=== PATIENT | male | born 1990 | race Caucasian/White ===

== ENCOUNTER 2016-12-31 12:27 | Observation (INO) | payer OTHER ==
[~2016-12-31] VITALS: Ht 175.3 cm; Wt 97.1 kg
--- NOTE | ~2016-12-31 | DS ---
Discharge Summary [address] [place]. [address] NAME: PHOEBE SALMERON : 86 STATUS : DIS Ubaldo PAT#: [id number] AGE: 26 ADM/REG DATE : 12/31/16 MR#: [id number] REPORT SERV DATE: 01/03/17 DICTATED BY: MONAE TRAN DATE: 01/02/17 REPORT STATUS : Draft TRANSCRIBED BY: NIXON DATE: 01/02/17 ADMISSION DATE: 12/31/2016 DISCHARGE DATE: 01/02/2017 CONSULTATION: 1. Neurology, Dr. Michael Tamayo. 2. Psychiatry. DISCHARGE DIAGNOSES: 1. Refractory seizures. 2. Psychogenic seizures. IMAGIN. MRI of the brain, impression; normal pre and post contrast MRI of the brain. 2. MRA head and neck, normal intracranial MRA. 3. MRA neck, normal brachiocephalic MRA with gadolinium of the carotid, vertebral, and subclavian arteries. 4. Echocardiogram, normal echocardiogram with left ventricular ejection fraction 55%. HISTORY OF PRESENT ILLNESS: This is a 26-year-old male, who presented to the emergency room department with complaints of tonic-clonic seizure-like activities with episodes of postictal confusion. Vital signs on presentation, blood pressure 138/70, temperature 98, heart rate 97, respiratory rate 16, oxygen saturation 98. Laboratory data: Serum Tegretol 13.5 (i). Creatinine 0.9, BUN 19. Chest x-ray shows no acute cardiopulmonary process. CT of the brain without contrast showed no acute intracranial pathology. An assessment of grand mal seizures was made in the ER. The patient was admitted to the Hospitalist Service. HOSPITAL COURSE: Refractory seizures. Neurology was consulted. Recommended to have an MRI of the brain and an EEG. MRI of the brain shows no acute cerebral process, however, EEG shows persistent seizure-like activities. Tegretol was discontinued during this admission. The patient received p.r.n. Ativan for seizure episodes and was started on Vimpat and Keppra during this admission. During the course of this admission, the patient had one additional seizure episode. There was a questionable psychogenic seizure. The patient was also noted by the Neurology team that the patient was noted to have severe anxiety during that process. The patient's Vimpat and Keppra were continued. Neurology recommended Psychiatry evaluation. The patient was evaluated by psychiatrist prior to discharge. The patient was ambivalent for Psychiatry followup as an outpatient. Psychiatry recommended the patient to continue antiseizure medications and follow up with Neurology as an outpatient. DISCHARGE MEDICATION: Discharge Summary [address] [address] NAME: PHOEBE SALMERON : 86 STATUS : DIS Ubaldo PAT#: [id number] AGE: 26 ADM/REG DATE : 12/31/16 MR#: [id number] REPORT SERV DATE: 01/03/17 DICTATED BY: MONAE TRAN DATE: 01/02/17 REPORT STATUS : Draft TRANSCRIBED BY: NIXON DATE: 01/02/17 1. Vimpat 200 mg p.o. q.12 hours. 2. Keppra 1000 mg p.o. q.12 hours. 3. Vitamin D 200 units p.o. b.i.d. 4. Aspirin 81 mg p.o. daily. DISCHARGE FOLLOWUP: 1. Follow up with primary neurologist within one week of discharge. 2. Follow up with primary care physician within one to two weeks of discharge. GILBERTO/NIXON Monae Tran MD / [id number] CC: MD Richard Nunn M.D.
--- NOTE | ~2016-12-31 | HP ---
History And Physical [address] [facility] [place]. [address] NAME: PHOEBE SALMERON : 86 STATUS : ADM Ubaldo PAT#: [id number] AGE: 26 ADM/REG DATE : 12/31/16 MR#: [id number] REPORT SERV DATE: 12/31/16 DICTATED BY: SAUMYA CALDERÓN DATE: 12/31/16 REPORT STATUS : Draft TRANSCRIBED BY: MODEduardo DATE: 12/31/16 DATE OF ADMISSION: 12/31/2016 HISTORY OF PRESENT ILLNESS: The patient is a 26-year-old male, who presented to [facility] with complaints of seizures. The patient said that last night around 10 o'clock, he was in a car as a passenger and his was driving and he had the short episode of absence when he was like passed out. He was talking to the then he stopped. The episode lasted very short and maybe a couple of seconds, then he regained his consciousness, and he was confused, initially disoriented, but he did not have any urination. The patient was also a little bit confused, but now he is improved. His father is also at the bedside, and he reported that the patient had a witnessed seizure episode as a tonic-clonic jerking in 2014 and then he had a three-minute post-event confusion, and this was documented on Neurology consultation which was done while the patient was admitted in June 2014. The patient's father reported that at this time the patient did not have convulsions, just episode of absence which basically lasted for seconds and then he said that also the patient is having now stuttering after this episode. Also, they reported that there was another episode recently when he had the seizure, but he was alone in [place] and nobody witnessed it. The patient does not have any other medical problems according to the patient's father. PAST SURGICAL HISTORY: Includes wisdom tooth removal and benign tumor from the foot. The patient does not smoke. He sometimes dips tobacco. No alcohol. No recreational drug use. 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 ALLERGIES: WRITTEN THAT THE PATIENT IS ALLERGIC TO NYQUIL, PSEUDOEPHEDRINE, DEXTROMETHORPHAN, AND DOXYLAMINE AND IT IS ALSO WRITTEN THAT HE IS ALLERGIC TO ACETAMINOPHEN, BUT THE PATIENT REPORTED THAT HE IS NOT ALLERGIC TO TYLENOL AND HE CAN TAKE TYLENOL. HOME MEDICATIONS: Include Tegretol 200 mg twice a day, vitamin D 200 mg twice a day, and multivitamins daily. FAMILY HISTORY: Father is healthy and mother has anemia problems. REVIEW OF SYSTEMS: All 14-point review of systems was done. The patient does not have any chest pain. No shortness of breath. No abdominal pain. No fever. No nausea. All 14-point review of systems done and he is negative except what is stated in the history of present illness. Also in 2015, the patient had a MRI of the brain, and at that time, it was essentially normal study. There was only slightly asymmetric appearance of the temporal horns adjacent to hippocampal region suggesting that it could be very early right hippocampal atrophy which could be seen with early presentation of mesial temporal sclerosis. History And Physical [address] [place]. [address] NAME: PHOEBE SALMERON : 86 STATUS : ADM Ubaldo PAT#: [id number] AGE: 26 ADM/REG DATE : 12/31/16 MR#: [id number] REPORT SERV DATE: 12/31/16 DICTATED BY: SAUMYA CALDERÓN DATE: 12/31/16 REPORT STATUS : Draft TRANSCRIBED BY: NIXON DATE: 12/31/16 PHYSICAL EXAMINATION: GENERAL: Well-nourished, well-developed male, not in acute distress. Resting quietly. VITAL SIGNS: Blood pressure 138/70, temperature 98, heart rate 97, respirations 16, and oxygen saturation 98 on room air. HEENT: Head atraumatic, normocephalic. Conjunctivae clear. Pupils are equal and reactive to light and accommodation. Extraocular muscles are intact. NECK: Supple. Trachea is midline. No supraclavicular or cervical lymphadenopathy LUNGS: Clear to auscultation bilaterally. Normal respiratory effort. CARDIOVASCULAR SYSTEM: Regular rate and rhythm. Point of maximal impulse not displaced. ABDOMEN: Soft, nontender, nondistended. Positive normoactive bowel sounds. EXTREMITIES: No clubbing, cyanosis. No edema. SKIN: Normal color and turgor. NEUROLOGICAL EXAMINATION: Muscle strength are 5/5 bilaterally in the upper and lower extremities. Deep tendon reflexes 2/4 bilaterally in upper and lower extremities. Cranial nerves III to XII are grossly intact. The patient is awake, alert, and oriented in time, place, and person. LABORATORY RESULTS: Serum Tegretol level was 13.5. He has sodium 143, potassium 3.7, chloride 109, carbon dioxide 29, BUN 9, creatinine 0.99, blood sugar is 86, magnesium is 2. Troponin less than 0.02. Calcium level is 8.9. White count 6.4, hemoglobin 15.4, hematocrit 43.8, platelet count 325. PT 13.2, INR is 1. The urinalysis did not show any evidence of urinary infection. Chest x-ray, PA and lateral, no acute cardiopulmonary abnormality. CT of the brain without contrast, normal CT of the brain. The CT scan of the brain was unremarkable. EKG show normal sinus rhythm with a rate of 84. Septal infarction of undetermined age. ASSESSMENT AND PLAN: This is a very pleasant 26-year-old male with a past medical history of grand mal seizure in 2014, now presented with absence type seizures (brief episode of absence) which basically happened with him last night. Also, there was another unwitnessed episode recently and also some stuttering after this episode. Question if this is an absence seizure. I discussed about these with the neurologist, Dr. Garcia, and he recently became his neurologist, since before he used to see Dr. Joya. He recommended to continue the patient's Tegretol although level is mildly elevated 13.5, he recommended to continue Tegretol, and I will recheck the Tegretol level in the morning as well as we will put the patient on Ativan p.r.n. for possible grand mal seizures. In the same time, the patient will be held for observation, and we will order MRI on the brain on this patient and consult neurologist to see him tomorrow. Also, since it was absence episode, we will also order echocardiogram on this patient, although the patient did not have any complaints and order TSH on this patient and free T4. History And Physical [address] [place]. [address] NAME: PHOEBE SALMERON : 86 STATUS : ADM Ubaldo PAT#: [id number] AGE: 26 ADM/REG DATE : 12/31/16 MR#: [id number] REPORT SERV DATE: 12/31/16 DICTATED BY: SAUMYA CALDERÓN DATE: 12/31/16 REPORT STATUS : Draft TRANSCRIBED BY: MODEduardo DATE: 12/31/16 Neurologist will see this patient starting tomorrow morning. The patient will be placed on cardiac telemetry bed and also start the patient on a baby aspirin. MG/MODL Saumya Calderón M.D. / [id number] CC: Teresa Salvador M.D., PhD.
--- NOTE | ~2016-12-31 | CN ---
Consultation Report [facility] [address] [place]. [address] NAME: PHOEBE SALMERON : 86 STATUS : ADM Ubaldo PAT#: [id number] AGE: 26 ADM/REG DATE : 12/31/16 MR#: [id number] REPORT SERV DATE: 01/01/17 DICTATED BY: MICHAEL TAMAYO DATE: 01/01/17 REPORT STATUS : Draft TRANSCRIBED BY: MODEduardo DATE: 01/01/17 NEUROLOGY CONSULTATION DATE OF CONSULTATION: 01/01/2017 REASON FOR CONSULTATION: Seizure. HOSPITALIST: Brandee Cerda M.D. NEUROLOGIST: Dr. Verona Joya, [place], [facility], she is over at [facility]. HISTORY OF PRESENT ILLNESS: The patient is a 26-year-old male, who has a history of tonic- clonic seizure activity. He had his first seizure in 2014 and was placed on carbamazepine by Dr. Verona Joya. Since that time, the patient has had partial complex seizure activity, and his last followup visit with Dr. Joya was approximately a year ago. Apparently, according to the patient's , he has not been completely compliant in taking his medication and has continued to have a few partial complex seizures. The patient reported he may have had a seizure while out [place] in [place] He does not remember how he got to his truck and was very sleepy afterwards. This was unwitnessed unfortunately. This last weekend, the patient complained of feeling "odd," he was tired, and complained of imbalance. On Saturday at approximately 10 p.m., he was with his at the grocery store, and while he was sitting in the back seat of the truck, he became unresponsive and let out a "grunt," and for approximately 30 seconds, he did not respond. His was afraid he had a seizure. He was not incontinent nor did he bite his tongue and afterwards he was somewhat drowsy. After consulting with [facility], he was brought to the hospital for further evaluation and treatment. Since that time, the patient has been drowsy. He has had difficulty with his speech and somewhat with his balance. The patient and his have been concerned that he might have had a stroke. Stroke has run in his family with his grandfather having a blood clotting disorder, several strokes, and heart attacks. When questioned more extensively, the patient's mentions that his seizures have seemed to worsen since he has been compliant taking his carbamazepine. His carbamazepine level is mildly elevated at 13.5 on admission. PAST MEDICAL HISTORY: Tonic-clonic seizure. PAST SURGICAL HISTORY: [place] teeth removal, benign tumor removal of the foot, tonsillectomy and adenoidectomy, and tympanoplasty. MEDICATIONS: Home medication list shows Tegretol-XR 200 mg twice a day, vitamin D 2000 units twice a day, and a multivitamin daily. ALLERGIES: NYQUIL. Consultation Report [address] [place]. [address] NAME: PHOEBE SALMERON : 86 STATUS : ADM Ubaldo PAT#: [id number] AGE: 26 ADM/REG DATE : 12/31/16 MR#: [id number] REPORT SERV DATE: 01/01/17 DICTATED BY: MICHAEL TAMAYO DATE: 01/01/17 REPORT STATUS : Draft TRANSCRIBED BY: NIXON DATE: 01/01/17 SOCIAL HISTORY: The patient is and he has two children. 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 He does not smoke. He dips tobacco. Denies the use of recreational drugs or alcohol. FAMILY HISTORY: The patient's mother has a "blood disorder," type unknown. His father has hyperlipidemia. He has one brother and two half sisters who are relatively healthy. His paternal grandfather has a blood clotting disorder. REVIEW OF SYSTEMS: For pertinent positives, please refer to HPI. PHYSICAL EXAMINATION: VITAL SIGNS: The patient is a 26-year-old male who stands 5 feet 9 inches tall and weighs 214 pounds. At this point, he is afebrile, heart rate 86, respiratory rate 14, O2 saturations on room air 100%, blood pressure 120/56. NEURO: The patient is awake, he is pleasant and cooperative. He is alert, he is oriented x4, however, he has profound expressive aphasia, which is intermittent. Pupils are 3 mm. PERRLA. EOMs intact, however, there is slight lateral nystagmus when looking to the left. No reported diplopia. Funduscopic: Positive red reflex bilaterally. Normal disc to cup ratio. No nicking, hemorrhaging, or papillary edema. Vision via confrontation is full in both baxter. The patient does report diminished sensation on the left side of the face when compared to the right. No facial droop. No ptosis. No tongue deviation or atrophy. Uvula midline. [id number], no ataxia. [id number], no ataxia. No pronator drift, asterixis, tremor. No dysmetria. Upper extremity strength is 5/5. Reported diminished sensation on the left arm when compared to the right. Upper DTRs are 1+ bilaterally. Lower extremity strength is 5/5. Lower DTRs are 2+ bilaterally. Downgoing toes. Again, reported diminished sensation on the left when compared to the right. The patient can get out of the bed without difficulty. Gait is slightly wide based, slow. There is no ataxia. Romberg negative. NECK: No carotid bruits, JVD, or thyromegaly. CHEST: Lung sounds are clear. No cough. CARDIAC: Regular rate and rhythm. ABDOMEN: Soft, nontender. Active bowel sounds x4 quadrants. LABORATORY DATA: CBC normal. BMP normal. TSH 1.33. Tegretol level elevated at 13.5. UA negative for UTI. Urine drug screen negative. IMAGING: CT of the brain, no acute changes. NIH stroke scale is 3. ASSESSMENT/PLAN: Tonic-clonic seizures, not controlled with Tegretol. In fact, seizures have escalated with increased dose. At this point, I will stop the Tegretol and place the patient on Vimpat 200 mg IV b.i.d. with the intent to convert it over to p.o. dosing when the patient is discharged from the hospital. The patient will be placed on seizure precautions. He will have an EEG today. He will also undergo an MRI of the brain without gadolinium and an MRA of the head and neck to rule out stroke-type event (the patient does have a history on both sides of his family of "blood clotting disorders"). He will be Consultation Report [address] [place]. [address] NAME: PHOEBE SALMERON : 86 STATUS : ADM Ubaldo PAT#: [id number] AGE: 26 ADM/REG DATE : 12/31/16 MR#: [id number] REPORT SERV DATE: 01/01/17 DICTATED BY: MICHAEL TAMAYO DATE: 01/01/17 REPORT STATUS : Draft TRANSCRIBED BY: NIXON DATE: 01/01/17 placed on aspirin 81 mg daily. He has been instructed again no driving x6 months until he is seizure free. He is also to be careful of swimming or bathing alone and not to work around heavy equipment. He verbalized an understanding. Thank you again for including us in consultation. We will continue to follow with you. The patient's case and plan of care were discussed with my collaborating physician, Dr. Michael Tamayo. DICTATED BY: Antionette Coelho DNP, ACNP-BC DERIK/NIXON Michael Tamayo MD / [id number] CC: Teresa Salvador M.D.
--- NOTE | ~2016-12-31 | HP ---
History And Physical [id number] [facility] [place]. 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 MG/NIXON Saumya Calderón M.D. / [id number] CC: Saumya Calderón M.D.
[~2016-12-31 12:27] MED LIST: TEG200 PO
[2016-12-31 13:25] LABS: WBC (NOT ORDERED) (RFLEX) 0 (0-5)
[2016-12-31 13:29] LABS: BASOPHILS 0.6 %; BASOPHILS ABSOLUTE 0.04 10/3/uL (0.0-0.16); EOSINOPHILS 1.4 %; EOSINOPHILS ABSOLUTE 0.09 10/3/uL (0.0-0.53); HEMATOCRIT 43.8 % (40.0-51.0); HEMOGLOBIN 15.4 g/dL (13.6-17.8); IMMATURE GRANULOCYTES 0.5 %; IMMATURE GRANULOCYTES ABSOLUTE 0.03 10/3/uL (0.0-0.11); LYMPHOCYTES 41.9 %; LYMPHOCYTES ABSOLUTE 2.68 10/3/uL (0.67-4.30); MEAN CORPUS HGB CONC 35.2 g/dL (32.0-36.0); MEAN CORPUSCULAR HEMOGLOB 29.1 pg (26.0-34.0); MEAN CORPUSCULAR VOLUME 82.8 fL (80-100); MEAN PLATELET VOLUME 8.5 fL (9.2-13.0); MONOCYTES 7.7 %; MONOCYTES ABSOLUTE 0.49 10/3/uL (0.21-1.20); NEUTROPHILS 47.9 %; NEUTROPHILS ABSOLUTE 3.06 10/3/uL (2.02-8.40); PLATELET COUNT 325 10/3/uL (150-400); RBC DISTRIBUTION WIDTH 12.9 % (12.0-16.0); RED CELL COUNT 5.29 10/6/uL (4.7-6.1); WHITE BLOOD CELLS 6.4 10/3/uL (4.5-10.5)
[2016-12-31 13:30] LABS: MANUAL DIFF NO %
[2016-12-31 13:32] LABS: ASCORBIC ACID (UR NOT ORDER) NEG (NEG); BILIRUBIN, URINE NEGATIVE (NEG); ER URINALYSIS TAT 0 Hrs 08 Mins; KETONE, URINE NEGATIVE (NEG); LEUKOCYTE ESTERASE(NOT OR NEG (NEG); NITRITE (URINE) NEG (NEG)
[2016-12-31 13:36] LABS: PROTIME (NOT ORD) 13.2 SEC (12.0-14.5)
[2016-12-31 13:37] LABS: PARTIAL THROMBO TIME 29.5 SEC (22.5-37.2)
[2016-12-31 13:45] LABS: CALCIUM, SERUM 8.9 MG/DL (8.5-10.4); CHEST PAIN PROFILE TAT 0 Hrs 20 Mins; CHLORIDE, SERUM 109 MMOL/L (96-112); CO2 (CARBON DIOXIDE) 29 MMOL/L (24-34); CREATININE 0.99 MG/DL (0.70-1.30); GFR AFRICAN AMERICAN 120 ML/MIN (>=60); GFR NON AFRICAN AMERICAN 103 ML/MIN (>=60); POTASSIUM, SERUM 3.7 MMOL/L (3.5-5.3); SODIUM, SERUM 143 MMOL/L (135-148); TROPONIN I <0.02 NG/ML (<0.05)
[2016-12-31 13:46] LABS: BUN (BLOOD UREA NITROGEN) 9 MG/DL (6-23); GLUCOSE, SERUM 86 MG/DL (60-99)
[2016-12-31] MEDS ORDERED: VITAMIN D2000 UNIT PO (18:21)
[2016-12-31] MEDS ORDERED: MULTIVITAMI1 PO (18:21)
[2016-12-31] MEDS ORDERED: TEGXR200 PO (18:21)
[2016-12-31 19:29] LABS: TEGRETOL (CARBAMAZEPINE) 13.5 MCG/ML (4.0-10.0)
[2016-12-31 22:23] LABS: FREE T4 0.75 NG/DL (0.76-1.46)
[2016-12-31 22:24] LABS: ULTRASENSITIVE TSH 1.33 MCIU/ML (0.358-3.740)
[2016-12-31 22:35] LABS: AMPHETAMINES (NOT ORD) NEG (NEG); BARBITURATES (NOT ORDERED NEG (NEG); BENZODIAZEPINES (NOT ORD) NEG (NEG); CANNABINOIDS (THC) NEG (NEG); COCAINE (NOT ORDERED) NEG (NEG); OPIATES NEG (NEG); PHENCYCLIDINE(PCP) NEG (NEG); TRICYCLICS NEG (NEG)
[2017-01-01 04:48] LABS: BASOPHILS 0.4 %; BASOPHILS ABSOLUTE 0.03 10/3/uL (0.0-0.16); EOSINOPHILS 1.7 %; EOSINOPHILS ABSOLUTE 0.12 10/3/uL (0.0-0.53); HEMATOCRIT 41.9 % (40.0-51.0); HEMOGLOBIN 14.6 g/dL (13.6-17.8); IMMATURE GRANULOCYTES 0.3 %; IMMATURE GRANULOCYTES ABSOLUTE 0.02 10/3/uL (0.0-0.11); LYMPHOCYTES 43.5 %; LYMPHOCYTES ABSOLUTE 3.08 10/3/uL (0.67-4.30); MEAN CORPUS HGB CONC 34.8 g/dL (32.0-36.0); MEAN CORPUSCULAR HEMOGLOB 29.1 pg (26.0-34.0); MEAN CORPUSCULAR VOLUME 83.5 fL (80-100); MEAN PLATELET VOLUME 8.5 fL (9.2-13.0); MONOCYTES 9.9 %; NEUTROPHILS 44.2 %; NEUTROPHILS ABSOLUTE 3.13 10/3/uL (2.02-8.40); PLATELET COUNT 336 10/3/uL (150-400); RED CELL COUNT 5.02 10/6/uL (4.7-6.1); WHITE BLOOD CELLS 7.1 10/3/uL (4.5-10.5)
[2017-01-01 04:50] LABS: MANUAL DIFF NO %
[2017-01-01 04:59] LABS: BUN (BLOOD UREA NITROGEN) 12 MG/DL (6-23); CALCIUM, SERUM 8.9 MG/DL (8.5-10.4); CHLORIDE, SERUM 108 MMOL/L (96-112); CO2 (CARBON DIOXIDE) 28 MMOL/L (24-34); CREATININE 0.95 MG/DL (0.70-1.30); GFR AFRICAN AMERICAN 126 ML/MIN (>=60); GFR NON AFRICAN AMERICAN 109 ML/MIN (>=60); GLUCOSE, SERUM 102 MG/DL (60-99); SODIUM, SERUM 143 MMOL/L (135-148)
[2017-01-01 05:20] LABS: TEGRETOL (CARBAMAZEPINE) 13.4 MCG/ML (4.0-10.0)
[2017-01-01 12:39] LABS: ALBUMIN 4.2 G/DL (3.5-5.0); ALKALINE PHOSPHATASE 73 U/L (45-117); DIRECT BILIRUBIN < 0.1 MG/DL (0.0-0.4); FOLATE 15.5 NG/ML (>5.2); INDIRECT BILIRUBIN(NOT ORDER) 0.3 MG/DL (0.1-0.9); SGOT(AST) 11 U/L (5-40); SGPT(ALT) 31 U/L (5-65); TOTAL BILIRUBIN 0.4 MG/DL (0-1.2); TOTAL PROTEIN 7.2 G/DL (6.0-8.5)
[2017-01-01 14:04] LABS: GLYCOHEMOGLOBIN (HbA1c) 5.2 % (4.7-6.1)
[2017-01-02 04:22] LABS: BASOPHILS 0.2 %; BASOPHILS ABSOLUTE 0.02 10/3/uL (0.0-0.16); EOSINOPHILS 0.1 %; EOSINOPHILS ABSOLUTE 0.01 10/3/uL (0.0-0.53); HEMATOCRIT 41.2 % (40.0-51.0); HEMOGLOBIN 14.3 g/dL (13.6-17.8); IMMATURE GRANULOCYTES 0.2 %; IMMATURE GRANULOCYTES ABSOLUTE 0.02 10/3/uL (0.0-0.11); LYMPHOCYTES 17.2 %; LYMPHOCYTES ABSOLUTE 1.86 10/3/uL (0.67-4.30); MANUAL DIFF NO %; MEAN CORPUS HGB CONC 34.7 g/dL (32.0-36.0); MEAN CORPUSCULAR HEMOGLOB 29.1 pg (26.0-34.0); MEAN CORPUSCULAR VOLUME 83.9 fL (80-100); MEAN PLATELET VOLUME 8.5 fL (9.2-13.0); MONOCYTES 6.8 %; MONOCYTES ABSOLUTE 0.73 10/3/uL (0.21-1.20); NEUTROPHILS 75.5 %; NEUTROPHILS ABSOLUTE 8.15 10/3/uL (2.02-8.40); PLATELET COUNT 312 10/3/uL (150-400); RBC DISTRIBUTION WIDTH 12.9 % (12.0-16.0); RED CELL COUNT 4.91 10/6/uL (4.7-6.1); WHITE BLOOD CELLS 10.8 10/3/uL (4.5-10.5)
[2017-01-02 04:39] LABS: BUN (BLOOD UREA NITROGEN) 12 MG/DL (6-23); CALCIUM, SERUM 8.4 MG/DL (8.5-10.4); CHLORIDE, SERUM 108 MMOL/L (96-112); CHOLESTEROL 186 MG/DL (< 200); CO2 (CARBON DIOXIDE) 29 MMOL/L (24-34); CREATININE 0.89 MG/DL (0.70-1.30); GFR AFRICAN AMERICAN 135 ML/MIN (>=60); GFR NON AFRICAN AMERICAN 116 ML/MIN (>=60); GLUCOSE, SERUM 100 MG/DL (60-99); HDL CHOLESTEROL 47 MG/DL (> 39); LDL CHOLESTEROL 126 MG/DL (< 130); NON-HDL CHOLESTEROL 139 MG/DL (< 160); POTASSIUM, SERUM 4.1 MMOL/L (3.5-5.3); SODIUM, SERUM 142 MMOL/L (135-148); TRIGLYCERIDE 69 MG/DL (< 150)
[2017-01-02 17:19] LABS: ASCORBIC ACID (UR NOT ORDER) NEG (NEG); BILIRUBIN, URINE NEGATIVE (NEG); KETONE, URINE NEGATIVE (NEG); LEUKOCYTE ESTERASE(NOT OR NEG (NEG); WBC (NOT ORDERED) (RFLEX) 2 (0-5)
[2017-01-02] MEDS ORDERED: ASAB PO (19:22)
[2017-01-02] MEDS ORDERED: VIMPAT200 MG PO (19:24)
[2017-01-02] MEDS ORDERED: VITAMIN D400 UNI1 PO (19:24)
[2017-01-02] MEDS ORDERED: KEPPRA1000 MG PO (19:24)
== END 2017-01-02 19:55 | disposition home or self-care (01) ==
LOC: ER 12:27 → CDU1 19:58
PROVIDERS: Hospitalist; Internal Medicine; Nurse Practitioner Acute Care
DX: G40.909 Epilepsy, unspecified, not intractable, without status epilepticus (principal); Z98.890 Other specified postprocedural states; Z88.8 Allergy status to other drugs, medicaments and biological substances; Z79.52 Long term (current) use of systemic steroids; Z79.899 Other long term (current) drug therapy; Z79.82 Long term (current) use of aspirin; Z90.89 Acquired absence of other organs
CPT/HCPCS: 70450; 70544; 70548; 70553; 71020; 80048; 80061; 80076; 80156; 80305; 81001; 82140; 82607; 82746; 83036; 83735; 84439; 84443; 84484; 85025; 85610; 85730; 93005; 93306; 95816; 96374; 96375; 96376; 99285; A9270-GY; A9577; C9254; G0378; J1953; J2405; J2550; J3411